=== PATIENT | male | born 1965 | race African-American/Black ===

== ENCOUNTER 2021-09-07 20:49 | Emergency (ER) | payer MEDICAID ==
[~2021-09-07] VITALS: Ht 167.6 cm; Wt 73.0 kg
[2021-09-07] MEDS ORDERED: ACETAMINOPHEN 325MG TABLET PO NR (21:19)
[2021-09-07] MEDS ORDERED: ACETAMINOPHEN 325MG TABLET PO STA (21:19)
[2021-09-07] MEDS ORDERED: SODIUM CHLORIDE 0.9% 1,000 ML IV ONE (21:30)
[2021-09-07 23:37] LABS: CHLORIDE 103 mEq/L (98-107)
[2021-09-07 23:44] LABS: ETHANOL BLOOD 55 mg/dL
[2021-09-07] MEDS ORDERED: IBUP-2028 MT (23:56)
[2021-09-08 01:00] VITALS: BP 128/80
== END 2021-09-08 01:35 | disposition home or self-care (01) ==
LOC: ER 20:49
DX: M79.10 Myalgia, unspecified site (principal); F10.129 Alcohol abuse with intoxication, unspecified; G40.909 Epilepsy, unspecified, not intractable, without status epilepticus; Y90.2 Blood alcohol level of 40-59 mg/100 ml; Y04.0XXA Assault by unarmed brawl or fight, initial encounter; Y93.89 Activity, other specified; Y92.89 Other specified places as the place of occurrence of the external cause
CPT/HCPCS: 71045; 72170; 80053; 80320; 83690; 96360; 99284; J7030; 36415; 85025; G0480

== ENCOUNTER 2023-01-29 12:08 | Emergency (ER) | payer OTHER ==
[~2023-01-29] VITALS: Ht 172.7 cm; Wt 80.0 kg
[~2023-01-29 12:08] MED LIST: ESLI600T PO; KEPP500 PO; PHEN100C12 PO
[2023-01-29 12:10] VITALS: BP 136/88; PULSE 100; RESP 16; TEMP 98.7; O2SAT 98
[2023-01-29] MEDS ORDERED: AMOX1TAB16 MT (13:01)
== END 2023-01-29 13:29 | disposition home or self-care (01) ==
LOC: ER 12:35
DX: L03.011 Cellulitis of right finger (principal); F12.90 Cannabis use, unspecified, uncomplicated; G40.909 Epilepsy, unspecified, not intractable, without status epilepticus
CPT/HCPCS: 10060; 99284